=== PATIENT | female | born 1995 | race Caucasian/White ===

== ENCOUNTER 2019-05-23 16:11 | Emergency (ER) | payer SELFPAY ==
--- NOTE | 2019-05-23 16:23 | Event Note ---
ED Screening Note Date of service: 05/23/19 Time: 16:19 ED Screening Note: 24 y/o female comes in for N/V lower back pain and abd pain times 2 week. LMP 04/05/19. Admits to Vag discharge This initial assessment/diagnostic orders/clinical plan/treatment(s) is/are subject to change based on patients health status, clinical progression and re- assessment by fellow clinical providers in the ED. Further treatment and workup at subsequent clinical providers discretion. Patient/guardian urged not to elope from the ED as their condition may be serious if not clinically assessed and managed. Initial orders include:
[2019-05-23 16:41] LABS: Basophils % (Auto) 0.3 % (0.0-1.8); Eosinophils # (Auto) 0.1 K/mm3 (0.0-0.4); Eosinophils % (Auto) 0.7 % (0.0-4.3); Hematocrit 36.7 % (30.3-42.9); Hemoglobin 12.4 gm/dl (10.1-14.3); Lymphocytes # (Auto) 2.4 K/mm3 (1.2-5.4); Lymphocytes % (Auto) 32.8 % (13.4-35.0); Mean Corpuscular HGB Conc 34 % (30-34); Mean Corpuscular Volume 84 fl (79-97); Monocytes # (Auto) 0.8 K/mm3 (0.0-0.8); Monocytes % (Auto) 11.1 % (0.0-7.3); Platelet Count 327 K/mm3 (140-440); Red Blood Count 4.37 M/mm3 (3.65-5.03); Red Cell Distribution Width 14.8 % (13.2-15.2)
--- NOTE | 2019-05-23 17:26 | Ultrasound Report ---
ULTRASOUND OBSTETRIC Indication: Positive test. Pelvic pain. Findings: There is a single, living intrauterine . [place]-rump length = 0.44 cm = 6 weeks, 1 day(s). heart rate is 114 beats per minute. There is a small 2.7 cm subchorionic hemorrhage along the left lateral margin of the gestational sac. The ovaries are normal. There is no free fluid. Impression: Single, living intrauterine with estimated sonographic age of 6 weeks, 1 day(s). Small subc horionic hemorrhage noted. Signer Name: Yamil Stout MD Signed: 05/23/2019 5:21 PM Workstation Name: [id number]
--- NOTE | 2019-05-23 17:26 | Ultrasound Report ---
ULTRASOUND OBSTETRIC Indication: Positive test. Pelvic pain. Findings: There is a single, living intrauterine . [place]-rump length = 0.44 cm = 6 weeks, 1 day(s). heart rate is 114 beats per minute. There is a small 2.7 cm subchorionic hemorrhage along the left lateral margin of the gestational sac. The ovaries are normal. There is no free fluid. Impression: Single, living intrauterine with estimated sonographic age of 6 weeks, 1 day(s). Small subc horionic hemorrhage noted. Signer Name: Yamil Stout MD Signed: 05/23/2019 5:21 PM Workstation Name: [id number]
[2019-05-23 17:27] LABS: Bacteria,Urine 1+ /HPF (Negative); Bilirubin,Urine NEG (Negative); Blood,Urine SM (Negative); Color,Urine Yellow (Yellow); Mucus,Urine FEW /HPF; Protein,Urine <15 mg/dL mg/dL (Negative); Urobilinogen,Urine < 2.0 mg/dL (<2.0)
[2019-05-23] MEDS ORDERED: REGLAN IV ONE (17:52)
[2019-05-23] MEDS ORDERED: NACL 0.9% 1000 ML 1,000 ML IV ONE (17:52)
--- NOTE | 2019-05-23 19:10 | Emergency Department Report ---
ED HPI - General Chief complaint: Nausea/Vomiting/Diarrhea Stated complaint: 6WKS /CRAMPS/BACK PAIN Time Seen by Provider: 05/23/19 17:37 Source: patient Mode of arrival: Ambulatory Limitations: No Limitations - History of Present Illness Initial comments: This is a 24-year-old female nontoxic, well nourished in appearance, no acu te signs of distress presents to the ED with c/o of pelvic pain, lower back pain, vaginal discharge, and n/v x few days. Patient also stated has vaginal discharge. Denies any concerns about STD. Patient stated denies any vaginal bleeding. Patient denies any upper abdominal pain. Patient denies any foul odor. Patient denies any chest pain, shortness of breathe, fever, chills, headache, stiff neck, numbness, tingling. Patient denies any urinary symptoms. Patient denies any allergies or PMH. -: days(s) Location: pelvis Radiation: none Severity: mild Severity scale (0 -10): 3 Quality: cramping, aching Consistency: constant Improves with: none Worsens with: none Associated symptoms: nausea/vomiting, vaginal discharge. denies: vaginal bleeding, abdominal pain, dysuria, headache, vision changes, malaise, dysparuenia, rash, seizure, shortness of breath, syncope, weakness Vaginal bleeding: none :: Yes Number of weeks : 6 Pre- care: none - Related Data Previous Rx's Medication Instructions Recorded Last Taken Type Nitrofurantoin [place]/M-Cryst 100 mg PO Q12HR #14 capsule 08/08/15 Unknown Rx [Macrobid CAP] metroNIDAZOLE 0.75%(NF) [Metrogel 1 applicatio TP BID #1 tube 08/08/15 Unknown Rx 0.75% TOPICAL] Metoclopramide [Reglan] 10 mg PO TID PRN #20 tab 05/23/19 Unknown Rx 21/Iron Fu/Folic Acid 1 each PO DAILY #30 tablet 05/23/19 Unknown Rx [ Complete Caplet] metroNIDAZOLE [metroNIDAZOLE 70 gm VG BID 7 Days #1 gel.w.appl 05/23/19 Unknown Rx VAGINAL 0.75% gel] Allergies Allergy/AdvReac Type Severity Reaction Status Date / Time No Known Allergies Allergy Verified 05/23/19 16:13 ED Review of Systems ROS: Stated complaint: 6WKS /CRAMPS/BACK PAIN Other details as noted in HPI Constitutional: denies: chills, fever Eyes: denies: eye pain, eye discharge, vision change ENT: denies: ear pain, throat pain Respiratory: denies: cough, shortness of breath, wheezing Cardiovascular: denies: chest pain, palpitations Endocrine: no symptoms reported Gastrointestinal: nausea, vomiting, other (pelvic pain). denies: abdominal pain, diarrhea Genitourinary: discharge. denies: urgency, dysuria Musculoskeletal: back pain. denies: joint swelling, arthralgia Skin: denies: rash, lesions Neurological: denies: headache, weakness, paresthesias Psychiatric: denies: anxiety, depression Hematological/Lymphatic: denies: easy bleeding, easy bruising ED Past Medical Hx - Past Medical History Previous Medical History?: No - Surgical History Past Surgical History?: No - Social History Smoking Status: Never Smoker Substance Use Type: None - Medications Home Medications: Home Medications Medication Instructions Recorded Confirmed Last Taken Type Nitrofurantoin [place]/M-Cryst 100 mg PO Q12HR #14 capsule 08/08/15 Unknown Rx [Macrobid CAP] metroNIDAZOLE 0.75%(NF) [Metrogel 1 applicatio TP BID #1 tube 08/08/15 Unknown Rx 0.75% TOPICAL] Metoclopramide [Reglan] 10 mg PO TID PRN #20 tab 05/23/19 Unknown Rx 21/Iron Fu/Folic Acid 1 each PO DAILY #30 tablet 05/23/19 Unknown Rx [ Complete Caplet] metroNIDAZOLE [metroNIDAZOLE 70 gm VG BID 7 Days #1 gel.w.appl 05/23/19 Unknown Rx VAGINAL 0.75% gel] ED Physical Exam - General Limitations: No Limitations General appearance: alert, in no apparent distress - Head Head exam: Present: atraumatic, normocephalic - Eye Eye exam: Present: normal appearance - Neck Neck exam: Present: normal inspection, full ROM. Absent: tenderness, meningismus, lymphadenopathy - Respiratory Respiratory exam: Present: normal lung sounds bilaterally. Absent: respiratory distress, wheezes, rales, rhonchi, stridor, chest wall tenderness, accessory muscle use, decreased breath sounds, prolonged expiratory - Cardiovascular Cardiovascular Exam: Present: regular rate, normal rhythm, normal heart sounds. Absent: bradycardia, tachycardia, irregular rhythm, systolic murmur, diastolic murmur, rubs, gallop - GI/Abdominal GI/Abdominal exam: Present: soft, normal bowel sounds. 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 Absent: cervical motion tendernes, adnexal tenderness, adnexal mass, uterine enlargement, uterine tenderness - Extremities Exam Extremities exam: Present: normal inspection, full ROM - Back Exam Back exam: Present: normal inspection, full ROM, paraspinal tenderness (lumbar paraspinal). Absent: tenderness, CVA tenderness (R), CVA tenderness (L), muscle spasm, vertebral tenderness, rash noted - Neurological Exam Neurological exam: Present: alert, oriented X3, normal gait - Psychiatric Psychiatric exam: Present: normal affect, normal mood - Skin Skin exam: Present: warm, dry, intact, normal color. Absent: rash ED Course Vital Signs 05/23/19 16:21 Temperature 98 F Pulse Rate 85 Respiratory 19 Rate Blood Pressure 130/83 [Left] O2 Sat by Pulse 99 Oximetry - Reevaluation(s) Reevaluation #1: 05/23/19 19:10 Patient is speaking in full sentences with no signs of distress noted. ED Medical Decision Making - Lab Data Result diagrams: 05/23/19 16:31 - Medical Decision Making This is a 24-year-old female presents with bacterial vaginosis and pelvic cramping. Patient is stable and was examined by me. Normal abdominal exam. US OB obtained and dictated by the radiologist unremarkable. Ua obtained. Wet prep has been obtained. GC is currently pending and wasn't struck her to return in 3-5 days for result. She is not concerned so medical treatment was not given. Quantative serum test obtained. Patient notified of the US report with no questions noted by the patient. Patient was instructed f/u with [facility] in 3-5. Patient received 1 L normal saline with Reglan and stated that symptoms nausea vomiting has subsided. A by mouth challenge has been obtained at [facility] and well. Labs within normal limits. At time of discharge, the patient does not seem toxic or ill in appearance. No acute signs of distress noted. Patient agrees to discharge treatment plan of care. No further questions noted by the patient. Critical care attestation.: If time is entered above; I have spent that time in minutes in the direct care of this critically ill patient, excluding procedure time. ED Disposition Clinical Impression: Nausea/vomiting in , Bacterial vaginosis Pelvic pain affecting Qualifiers: Trimester: first trimester Qualified Code(s): O26.891 - Other specified pregna ncy related conditions, first trimester; R10.2 - Pelvic and perineal pain Disposition: TO HOME OR SELFCARE Is pt being admited?: No Does the pt Need Aspirin: No Condition: Stable Instructions: Bacterial Vaginosis (ED), (ED) Additional Instructions: Follow-up with a [facility] doctor in 3-5 days or if symptoms worsen and continue return to emergency room as soon as possible. Return in 3-5 days for gonorrhea and chlamydia results. Prescriptions: metroNIDAZOLE [metroNIDAZOLE VAGINAL 0.75% gel] 70 gm VG BID 7 Days #1 gel.w.appl 21/Iron Fu/Folic Acid [ Complete Caplet] 1 each PO DAILY #30 tablet Metoclopramide [Reglan] 10 mg PO TID PRN #20 tab PRN Reason: Nausea Referrals: PRIMARY CARE, [Referring] - 3-5 Days YASMEEN CHOI MD [Staff Physician] - 3-5 Days [facility] [Provider Group] - 3-5 Days [facility] [Primary Care Provider] - 3-5 Days Forms: Work/School Release Form(ED)
[2019-05-23 19:33] VITALS: BP 111/63
== END 2019-05-23 19:34 | disposition home or self-care (01) ==
LOC: ED 16:11
DX: O23.591 Infection of other part of genital tract in pregnancy, first trimester (principal); B96.89 Other specified bacterial agents as the cause of diseases classified elsewhere; Z3A.01 Less than 8 weeks gestation of pregnancy; Z79.899 Other long term (current) drug therapy
CPT/HCPCS: 36415; 76801; 76817; 81001; 84702; 85025; 87210; 87591; 96361; 96374; 99284; J2765; J7030

== ENCOUNTER 2020-01-02 21:16 | Outpatient (CLI) | payer MEDICAID ==
[2020-01-02 23:34] VITALS: BP 123/82
== END 2020-01-03 00:05 | disposition home or self-care (01) ==
LOC: TRG 21:16
PROVIDERS: ATTEND Obstetrics & Gynecology
DX: O47.1 False labor at or after 37 completed weeks of gestation (principal); Z3A.39 39 weeks gestation of pregnancy
CPT/HCPCS: 59025